=== PATIENT | male | born 1980 | race Caucasian/White ===

== ENCOUNTER 2016-04-29 10:13 | Emergency (ER) | payer OTHER ==
[~2016-04-29] VITALS: Ht 177.8 cm; Wt 80.0 kg
[2016-04-29 10:15] VITALS: BP 129/73; PULSE 56; RESP 12; TEMP 97.5; O2SAT 100
[2016-04-29 10:52] LABS: AUTOMATED NEUTROPHIL # 2.3 TH/MM3 (1.8-7.7); BASOPHIL % 0.6 % (0.0-2.0); EOSINOPHIL # 0.1 TH/MM3 (0-0.4); EOSINOPHIL % 1.1 % (0.0-4.0); HEMO FLAGS DIFF FINAL; LYMPH % 41.6 % (9.0-44.0); LYMPHOCYTE # 2.1 TH/MM3 (1.0-4.8); MEAN CELL VOLUME 86.4 FL (80.0-100.0); MEAN CORPUSCULAR HEMOGLOBIN 29.7 PG (27.0-34.0); MEAN CORPUSCULAR HGB CONC 34.4 % (32.0-36.0); MONO % 10.5 % (0.0-8.0); NEUT % 46.2 % (16.0-70.0); PLATELET COUNT 182 TH/MM3 (150-450); RED BLOOD COUNT 4.98 MIL/MM3 (4.50-5.90); RED CELL DISTRIBUTION WIDTH 12.8 % (11.6-17.2)
[2016-04-29 11:04] LABS: BICARBONATE 27.2 MEQ/L (21.0-32.0); POTASSIUM 3.8 MEQ/L (3.5-5.1)
--- NOTE | 2016-04-29 12:59 | PD ---
HPI Chief Complaint: Skin Problem Time Seen by Provider: 11:15 Travel History International Travel<30 days: Yes Contact w/Intl Traveler<30days: Yes Name of Country Traveled to: [place] Traveled to known affect area: Yes History of Present Illness HPI Patient is a 36 year old male presents to the ER for evaluation of right thumb swelling for the past month. Patient states he recently went on a surfing trip to [place] and had contact with sea urchin spines. He said after a few days his thumb was very swollen and he had red streaks up his arm. States went to a Doctor in [place] and was prescribed augmentin and he was recommended to follow up with a hand surgeon within 24 hours which he did not. Patient states finished augmentin this week and redness has gone down but swelling persists. He called Dr. Aguilar's office and was told to come to the ER. He tells me Dr. Aguilar is expecting him. Patient denies any fever. States ROM is minimally limited by swelling. Patient had xr in [place] showing no fracture and no FB. PFSH Social History Alcohol Use: No Tobacco Use: No Substance Use: No Allergies-Medications (Allergen,Severity, Reaction): Coded Allergies: No Known Allergies (Verified , 04/29/16) Reported Meds & Prescriptions Reported Meds & Active Scripts Active No Active Prescriptions or Reported Medications Review of Systems Except as stated in HPI: all other systems reviewed are Neg Physical Exam Narrative GENERAL: WD/WN in nad. SKIN: Warm and dry. HEAD: Normocephalic. EYES: No scleral icterus. No injection or drainage. NECK: Supple, trachea midline. No JVD or lymphadenopathy. CARDIOVASCULAR: Regular rate and rhythm without murmurs, gallops, or rubs. RESPIRATORY: Breath sounds equal bilaterally. No accessory muscle use. GASTROINTESTINAL: Abdomen soft, non-tender, nondistended. MUSCULOSKELETAL: LUE: Hand/wrist/forearm WNL. RUE: there is some soft tissue swelling at the right thumb IP joint. There is no induration, erythema. The edema is fairly boggy and the IP joint can be redily palpated and there is no joint effusion. Tendon motions are all intact in flex/ext/opp/add/abduction. There is no convincing sign of infection. There is also some scabs at the radial aspect of the index finger from what he describes as more urchin needles. No swelling erythema nor edema here. These are minor healed abrasions. Wrist/forearm/elbow are normal. BACK: Nontender without obvious deformity. No CVA tenderness. Data Data Last Documented VS Vital Signs Date Time Temp Pulse Resp B/P Pulse Ox O2 Delivery O2 Flow Rate FiO2 04/29/16 10:15 97.5 56 12 129/73 100 Room Air Orders Complete Blood Count With Diff (04/29/16 10:22) Basic Metabolic Panel (Bmp) (04/29/16 10:22) Labs Laboratory Tests Test 04/29/16 10:28 White Blood Count 5.0 TH/MM3 Red Blood Count 4.98 MIL/MM3 Hemoglobin 14.8 GM/DL Hematocrit 43.0 % Mean Corpuscular Volume 86.4 FL Mean Corpuscular Hemoglobin 29.7 PG Mean Corpuscular Hemoglobin 34.4 % Concent Red Cell Distribution Width 12.8 % Platelet Count 182 TH/MM3 Mean Platelet Volume 10.3 FL Neutrophils (%) (Auto) 46.2 % Lymphocytes (%) (Auto) 41.6 % Monocytes (%) (Auto) 10.5 % Eosinophils (%) (Auto) 1.1 % Basophils (%) (Auto) 0.6 % Neutrophils # (Auto) 2.3 TH/MM3 Lymphocytes # (Auto) 2.1 TH/MM3 Monocytes # (Auto) 0.5 TH/MM3 Eosinophils # (Auto) 0.1 TH/MM3 Basophils # (Auto) 0.0 TH/MM3 CBC Comment DIFF FINAL Differential Comment Sodium Level 140 MEQ/L Potassium Level 3.8 MEQ/L Chloride Level 106 MEQ/L Carbon Dioxide Level 27.2 MEQ/L Anion Gap 7 MEQ/L Blood Urea Nitrogen 22 MG/DL Creatinine 1.20 MG/DL Estimat Glomerular Filtration 69 ML/MIN Rate Random Glucose 123 MG/DL Calcium Level 8.9 MG/DL [facility] Medical Decision Making Medical Screen Exam Complete: Yes Emergency Medical Condition: Yes Differential Diagnosis Soft tissue swelling, cellulitis excluded clinically, abscess excluded clinically, osteomyelitis excluded clinically, joint effusion excluded clinically. Narrative Course Patient appears well. Boggy edema of right thumb IP joint. No convincing s/s of infection. Discussed briefly with Dr. Aguilar who is not expecting patient but referred him to ED. He is however happy to see in follow up and referral is made. Discussed with patient if symptoms persist OP MRI may be indicated but there is no indication for further workup today. Discussed s/s of infection and if they occur to return to the ED. Diagnosis Primary Impression: Swelling of right thumb Referrals: Michael Aguilar III, MD Scripts No Active Prescriptions or Reported Meds Disposition: 01 DISCHARGE HOME Condition: Stable Jayson Martinez MD Apr 29, 2016 12:59
[2016-05-06] MEDS ORDERED: TENI5INJ IM (09:35)
[2016-05-06] MEDS ORDERED: DOXY100C PO (10:08)
[2016-06-15] MEDS ORDERED: TERB250T4 PO (08:58)
[2016-07-22] MEDS ORDERED: CEPH-460 PO (09:21)
[2016-07-22] MEDS ORDERED: NORC5TAB PO (09:21)
== END 2016-04-29 13:18 | disposition home or self-care (01) ==
LOC: NEPB 10:13
DX: M79.89 Other specified soft tissue disorders (principal)
CPT/HCPCS: 80048; 85025; 99283

== ENCOUNTER → 2016-07-22 | Day surgery (SDC) | payer OTHER ==
[~2016-07-22] VITALS: Ht 177.8 cm; Wt 81.8 kg
[~2016-07-22] MED LIST: *MEPERIDINE 25 MG INJ VIAL PERIprocedural Use ONLY ONE; ACETAMINOPHEN/HYDROcodone 325 MG/10 MG TAB ONE; BUPIVACAINE HCL PF 0.5% 30 ML VIAL ONE; CEPH-460 PO; LACTATED RINGER'S 1000 ML INJ 1,000 ML IV ONE; LACTATED RINGER'S 1000 ML INJ 1,000 ML ONE; LIDOCAINE HCL 2% 50 ML VIAL ONE; MIDAZOLAM HCL 2 MG/2 ML VIAL ONE; NEOMYCIN/POLYMYXIN 1 ML G.U. IRRIGANT IR ONE; NORC5TAB PO; ONDANSETRON HCL 4 MG/2 ML VIAL IV PUSH ONE; PROPOFOL 200 MG/20 ML AMP IV ONE; SODIUM CHLORIDE 0.9% INJ 50 ML ONE; ceFAZolin INJ 1,000 MG VIAL ONE
[2016-07-22 06:46] VITALS: BP 118/78; PULSE 55; RESP 16; TEMP 97.8; O2SAT 100
[2016-07-22 07:17] LABS: HEMATOCRIT 42.3 % (39.0-51.0); MEAN CELL VOLUME 87.3 FL (80.0-100.0); MEAN CORPUSCULAR HGB CONC 33.2 % (32.0-36.0); PLATELET COUNT 163 TH/MM3 (150-450); RED BLOOD COUNT 4.85 MIL/MM3 (4.50-5.90); RED CELL DISTRIBUTION WIDTH 12.6 % (11.6-17.2); REVIEW FLAG FINAL; WHITE BLOOD COUNT 5.3 TH/MM3 (4.0-11.0)
[2016-07-22 09:19] VITALS: PULSE 81
--- NOTE | 2016-07-22 09:54 | MP ---
cc: MICHAEL AGUILAR III, M.D. DATE OF SURGERY: 07/22/2016 PREOPERATIVE DIAGNOSIS Right thumb foreign body and joint infection. POSTOPERATIVE DIAGNOSIS Right thumb foreign body and joint infection. PROCEDURE Right thumb interphalangeal joint arthrotomy with biopsies, synovectomy and foreign body removal. SURGEON Michael Aguilar III, MD DETAILS OF PROCEDURE The patient was brought to the operating room and placed supine on the operating table. After the correct site and side of surgery were verified by members of each team in the room multiple times including the patient and myself, and after adequate preoperative markings and preoperative written consent was verified by everyone's, and after adequate preoperative timeout was performed to everyone's satisfaction, and after adequate IV sedation had been achieved the right upper extremity was prepped and draped in traditional sterile surgical fashion. A 50/50 mixture of 2% plain lidocaine and 0.5% plain Marcaine was infiltrated in the subcutaneous tissue in the dorsal aspect of the thumb. An Mayito wrap was used to gently exsanguinate the limb and a highly placed well-padded axillary tourniquet was inflated to 200 mmHg for approximately 25 minutes. A transversely oriented incision was made over the dorsal aspect of the IP joint in a skin crease. Dissection was carried out bluntly. Bipolar electrocautery was used as needed. Protrusion through the extensor tendon with significant synovitis around it was identified and within it was a small 1-2 mm foreign body that was dark and pointy. This was removed and passed off the field as a specimen. Exploration from the ulnar to the radial side of the joint was then performed superficial to the extensor tendon. No further foreign bodies were identified but a significant amount of synovitis was identified underlying the tendon. This was then debrided and passed off the field as specimen. At this point I decided to split the extensor tendon longitudinally through the area of the foreign body protrusion so I could explore the joint more thoroughly. Continued synovectomy was performed. The joint was thoroughly explored and no further foreign bodies were identified deep to the extensor tendon. No other abnormalities were identified and the articular cartilage in the IP joint appeared to be intact. Thorough irrigation with a liter's worth of saline was used. The extensor tendon was repaired using running 4-0 Prolene sutures. Thorough irrigation was performed again and the skin edges re-approximated using interrupted and running 5-0 nylon suture. The hand and arm were thoroughly cleansed and dried. Additional local anesthetic was infiltrated deep into the joint for postoperative pain relief and pain control. Betadine and Adaptic dressing was applied atop the wound followed by a bulky soft dressing. The axillary tourniquet was released. The hand and all the fingers on the right including the thumb became immediately soft, pink and warm and had brisk capillary refill of less than two seconds. The patient was awakened from anesthesia and transported to post-anesthesia care unit awake and in stable condition at the end of the case. The sponge, needle and instrument counts were correct at the end of the case as reported by the nurses in the room. MD AARON Cha III/ZAIRA /9:25 AM /9:37 AM
[2016-07-22 10:00] VITALS: PULSE 70; TEMP 98.2
[2016-07-22 10:40] VITALS: BP 112/70; PULSE 71; RESP 14; O2SAT 98
== END | disposition home or self-care (01) ==
LOC: PHSDC 06:09
PROVIDERS: ATTEND Orthopaedic Surgery Hand Surgery
DX: M65.9 Synovitis and tenosynovitis, unspecified (principal); M79.5 Residual foreign body in soft tissue
CPT/HCPCS: 01830; 26080; 36415; 76000; 85027; 86403; 87015; 87070; 87102; 87116; 87176; 87205; 87206; 88305; J0690; J2175; J2250; J2405; J3010; J7120